=== PATIENT | female | born 1985 | race Caucasian/White ===

== ENCOUNTER 2017-02-26 05:40 | Inpatient (IN) | payer OTHER ==
[2017-02-26] MEDS ORDERED: EPSOM SALT 454 GM TP PRN (06:25)
[2017-02-26] MEDS ORDERED: OLIVE OIL 118 ML BTL MISC PRN (06:25)
[2017-02-26] MEDS ORDERED: TERBUTALINE SULFATE 1 MG/ML VIAL IV PRN (06:25)
[2017-02-26] MEDS ORDERED: OXYTOCIN 20 UNIT in LR 1,000 ML IV PRN (06:25)
[2017-02-26 06:59] LABS: % IMMATURE GRANULYOCYTES 0.3 % (0.0-1.1); ABSOLUTE IMMATURE GRANULOCYTES 0.03 10^3/uL (0.00-0.10); ADD DIFF? NO; ADD MORPH? NO; ADD SCAN? NO; ATYPICAL LYMPHOCYTE FLAG 0 (0-99); FRAGMENT RBC FLAG 0 (0-99); HEMATOCRIT 32.9 % (38.0-47.0); LEFT SHIFT FLG 0 (0-99); LIPEMIA HEMOLYSIS FLAG 80 (0-99); MEAN CELL HEMOGLOBIN 26.1 pg (27.9-34.1); MEAN CELL HEMOGLOBIN CONCENTR. 33.4 g/dL (32.4-36.7); MEAN PLATELET VOLUME 9.8 fL (8.7-11.7); PLATELET CLUMPS FLAG 10 (0-99); PLATELET COUNT 280 10^3/uL (150-400); RED BLOOD CELL COUNT 4.22 10^6/uL (4.18-5.33); RED CELL DISTRIBUTION WIDTH 13.3 % (11.5-15.2)
[2017-02-26] MEDS ORDERED: MISOPROSTOL 200 MCG TAB ONE (08:22)
[2017-02-26] MEDS ORDERED: OLIVE OIL 118 ML BTL ONE (08:22)
[2017-02-26] MEDS ORDERED: LIDOCAINE 1% 300 MG/30 ML SDV ONE (08:22)
[2017-02-26] MEDS ORDERED: AMMONIA AROMATIC 1 EACH AMP IH ONE (08:22)
[2017-02-26] MEDS ORDERED: OXYTOCIN 10 UNIT/ML VIAL ONE ×2 (08:22→22:13)
--- NOTE | 2017-02-26 10:04 | OBPROG ---
Labor Progress Note Assessment/Plan: Assessment: [id number] with IUP@ 40-4 PROM @ 0330 early labor GBS negative Plan: expectant management reassess in 2 hrs/PRN cont IA 02/26/17 10:00 02/26/17 10:02 02/26/17 10:03 Subjective/Intrapartum Course: 02/26/17 10:01 Pt doing well, she reports having irregular contractions. She is breathing through them. Currently using hydrotherapy for pain relief. She denies any pain medications at this time. Mother and FOB are at BS and supportive. Objective: 02/26/17 06:40 Patient ABO/Rh O POSITIVE 02/26/17 06:40 - SVE Dilation (cm): 3 Effacement (%): 75 Station: -2 (exam not done at this time, /-2 from previous RN exam) Membranes: SROM Amniotic Fluid Color: Clear - Contraction Pattern Assessment Current Contraction Pattern: Irregular (palpate moderate) - Physical Exam General Appearance: WD/WN, alert, no apparent distress Neck: supple Abdomen: non-tender, soft Skin: normal color, warm/dry Neuro/Psych: no motor/sensory deficits, alert, normal mood/affect, oriented x 3 Oxytocin Orders Assessment - Pre-Induction/Augmentation Assessment Gestational Age: 40 week(s) and 4 day(s) ICD10 Worksheet Patient Problems: Problems Problem Status Onset PROM (premature rupture of membranes) Acute - ICD10 Problem Qualifiers (1) PROM (premature rupture of membranes)
--- NOTE | 2017-02-26 13:25 | OBPROG ---
Labor Progress Note Assessment/Plan: Assessment:contractions q 2-3 cat 1 fhr pain fairly managed requesting epidural for pain relief forebag present exam 6/100/-1 hurting with the contractions Plan:epidural for pain relief expectant management 02/26/17 13:24 Subjective/Intrapartum Course: 02/26/17 10:01 Pt doing well, she reports having irregular contractions. She is breathing through them. Currently using hydrotherapy for pain relief. She denies any pain medications at this time. Mother and FOB are at BS and supportive. 02/26/17 13:21 coping fair. Requesting an epidural for pain relief Discussed r/b/a of epidural verbalized understanding Objective: 02/26/17 06:40 Patient ABO/Rh O POSITIVE 02/26/17 06:40 - SVE Dilation (cm): 6 Effacement (%): 100 Station: -1 Membranes: SROM Amniotic Fluid Color: Clear - Contraction Pattern Assessment Current Contraction Pattern: Irregular (palpate moderate) - FHR Assessment Kim FHR (bpm): 135 FHR Pattern Variability: Moderate FHR Category: 1 - Physical Exam General Appearance: WD/WN, alert, no apparent distress Respiratory: chest non-tender, lungs clear, normal breath sounds Cardiac/Chest: regular rate, rhythm Abdomen: normal bowel sounds Extremities: normal range of motion, Lakeisha's sign (negative bilaterally) DTR- Lower Extremities: Knee (R): 1+, Knee (L): 1+ (no clonus) Skin: normal color, warm/dry Neuro/Psych: no motor/sensory deficits, alert, normal mood/affect, oriented x 3 Oxytocin Orders Assessment - Pre-Induction/Augmentation Assessment Gestational Age: 40 week(s) and 4 day(s) ICD10 Worksheet Patient Problems: Problems Problem Status Onset PROM (premature rupture of membranes) Acute
[2017-02-26] MEDS: LR 1,000 ML IV PRN ×2 (13:29→14:45)
[2017-02-26] MEDS ORDERED: fentaNYL 2MCG/ML/BUP 0.1% RTU 100 ML BAG EP ONE (13:36)
[2017-02-26] MEDS ORDERED: BUPIVACAINE 0.25% 30 ML SDV ONE (13:37)
[2017-02-26] MEDS ORDERED: PHENYLEPHRINE HCL 100 MCG/ML SYR ONE (13:38)
[2017-02-26] MEDS ORDERED: fentaNYL 100 MCG/2 ML INJ ONE (13:39)
--- NOTE | 2017-02-26 13:54 | GHP ---
[f rep st] HISTORY AND PHYSICAL DATE OF ADMISSION: 02/26/2017 HISTORY OF PRESENT ILLNESS: The patient is a 3, A 2, living 0, 31-year- old with an EDC of 02/22/2017, which gives her a gestational age of 40 and 4/7 weeks who comes in with spontaneous rupture of membranes at 3:30 am on 2016. The patient states clear fluid, feeling positive movement, having regular contractions, positive bloody show. The patient has routinely been seen at [facility] since 07/23/2016 at 9 weeks and 4 days. PAST MEDICAL HISTORY: The patient has a history of migraines, history of asthma. PAST SURGICAL HISTORY: Benign FAMILY HISTORY: History of hypothyroidism and type 2 diabetes. PRESENT HISTORY: Severe nausea and vomiting early on in the . A complex chorionic hemorrhage that resolved. Rubella was low immune. GYNECOLOGICAL HISTORY: History of OCP use and an IUD. PREVIOUS HISTORY: January of 2016, 8 weeks SAB; 04/2016 a 5 week SAB. Menarche began at 13 years, 28 days, length of 5 days. LMP was certain at 05/25/2016. ROS x 8 benign PHYSICAL ASSESSMENT: Patient is awake, alert, oriented x3. LUNGS: Clear bilaterally. ABDOMEN: Bowel sounds are positive in all 4 quadrants. EXTREMITIES: DTRs are 1+ bilaterally with no clonus. LABS: The patient is O positive. Antibody negative. RPR is nonreactive. Rubella is low positive. Hepatitis is negative. HIV is negative. Trio screen was negative. TSH was 0.307. . Three hour GTT was within normal limits. The patient was dated with an early ultrasound at 8 weeks and the edc was changed to 02/22/2017. PLAN OF CARE: 1. GBS negative. 2. Epidural for pain relief. 3. Consult Dr. Ramirez for plan of care as needed. /[id number]/MODL MTDD
--- NOTE | 2017-02-26 14:31 | PREANESOB ---
Obstetric Pre-Anesthesia Info - General Info Proposed Procedure: Labor and delivery after SROM. : 3 Para: 0 TOMER: 02/22/17 Gestational Age: 40 week(s) and 4 day(s) - Info Status: Full Term Monitors: External FHR Baseline (bpm): 130 FHR Pattern: Reassuring - Labor Status Cervical Dilation per last OB SVE: 6 Station per last OB SVE: -1 Amniotic Fluid Color: Clear Indications for Labor Analgesia: Pain Control Labor Epidural: Proposed Anesthesia Allergies/Adverse Reactions: Allergy/AdvReac Type Severity Reaction Status Date / Time No Known Allergies Allergy Unverified 02/26/17 06:25 Home Medications: Medication Instructions Recorded Vit27&Calcium/Iron/FA 1 each PO DAILY 02/26/17 [ Rx 1 Tablet (RX)] Visit Medications: Generic Name Dose Route Start Last Admin Trade Name Freq PRN Reason Stop Dose Admin Lactated Ringer's 1,000 mls @ 0 mls/hr 02/26/17 06:25 Lr IV 02/27/17 06:24 PRN PRN SEE PROTOCOL CONDITIONS Protocol Per Protocol Oxytocin 20 unit/ Lactated 1,002 mls @ 150 mls/hr 02/26/17 06:25 Ringer's IV PRN PRN Post- bleeding Ibuprofen 600 mg 02/26/17 06:25 Motrin PO 08/25/17 06:24 Q6HRS PRN post , inflammation Magnesium Sulfate 454 gm 02/26/17 06:25 Epsom Salt TP 08/25/17 06:24 Q1H PRN perineal discomfort Crandall Oil 118 ml 02/26/17 06:25 Sweet Oil MISC 08/25/17 06:24 ONCE PRN perineal massage Terbutaline Sulfate 0.25 mg 02/26/17 06:25 Brethine IV 08/25/17 06:24 ONCE PRN Tachysystole Discontinued Medications Generic Name Dose Route Start Last Admin Trade Name Freq PRN Reason Stop Dose Admin Ammonia (Aromatic Spirit) Confirm 02/26/17 08:22 Ammonia Aromatic Administered 02/26/17 08:23 Dose 1 each IH .STK-MED ONE Bupivacaine HCl Confirm 02/26/17 13:37 Sensorcaine 0.25% Sdv Administered 02/26/17 13:38 Dose 30 ml .ROUTE .STK-MED ONE Fentanyl Confirm 02/26/17 13:39 Sublimaze Administered 02/26/17 13:40 Dose 100 mcg .ROUTE .STK-MED ONE Fentanyl/Bupivacaine HCl Confirm 02/26/17 13:36 Fentanyl/Bupivacaine/Ns 2 Mcg/Ml 0.1% (Premix Administered 02/26/17 13:37 Dose 100 ml EP .STK-MED ONE Lidocaine HCl Confirm 02/26/17 08:22 Lidocaine Hcl 1% Administered 02/26/17 08:23 Dose 300 mg .ROUTE .STK-MED ONE Misoprostol Confirm 02/26/17 08:22 Cytotec Administered 02/26/17 08:23 Dose 1,000 mcg .ROUTE .STK-MED ONE Crandall Oil Confirm 02/26/17 08:22 Sweet Oil Administered 02/26/17 08:23 Dose 118 ml .ROUTE .STK-MED ONE Oxytocin Confirm 02/26/17 08:22 Pitocin Administered 02/26/17 08:23 Dose 30 unit .ROUTE .STK-MED ONE Phenylephrine HCl Confirm 02/26/17 13:38 Neosynephrine Administered 02/26/17 13:39 Dose 1,000 mcg .ROUTE .STK-MED ONE - Anesthesia History Response to Local Anesthetics: Normal Anesthesia & Operative History: No Prior Problems - Social History Substance Use/Abuse: Denies - Vital Signs Blood Pressure: 122/70 Heart Rate: 115 Height/Weight (Nursing): Height 165.1 cm Weight 78.471 kg - Focused Exam Neck exam: FROM Mallampati Score: Class 2 Mouth exam: normal dental/mouth exam Pulmonary: no respiratory distress Cardiovascular: regular rate and rhythym Labs: 02/26/17 06:40 Patient ABO/Rh O POSITIVE 02/26/17 06:40 - Plan Anesthetic Plan: TWILA Consent Signed and on Chart: Yes Patient/Guardian Understands and Agrees to Plan: Yes Urgent/Emergent Case: Veronika goodson completed preop but documented later for safe timely pt care
--- NOTE | 2017-02-26 14:35 | POSTANESTH ---
Post Anesthetic Evaluation Cardiovascular Status: Normal, Stable, Similar to Pre-Op Cond Respiratory Status: Normal, Stable, Similar to Pre-op Cond. Level of Consciousness/Mental Status: Can Participate in Eval, Alert and Oriented Pain Control: Adequate, Prn Tx Ordered Nausea/Vomiting Control: Adequate, Prn Tx Ordered Complications Possibly Related to Anesthesia: None Noted
[2017-02-26] MEDS ORDERED: PHENYLEPHRINE HCL 100 MCG/ML SYR IVP PRN (14:37)
[2017-02-26] MEDS ORDERED: ONDANSETRON 4 MG/2 ML VIAL IVP PRN (14:37)
[2017-02-26] MEDS ORDERED: LR 500 ML IV SCH (15:00)
--- NOTE | 2017-02-26 15:00 | OBPROG ---
Labor Progress Note Assessment/Plan: Assessment: IUP at 40+ wks SROM, SOOC recent TWILA and comfortable GBS- Plan: Forbag - just AROM'd, still clear fluid 02/26/17 14:57 Subjective/Intrapartum Course: 02/26/17 10:01 Pt doing well, she reports having irregular contractions. She is breathing through them. Currently using hydrotherapy for pain relief. She denies any pain medications at this time. Mother and FOB are at BS and supportive. 02/26/17 13:21 coping fair. Requesting an epidural for pain relief Discussed r/b/a of epidural verbalized understanding 02/26/17 14:58 Pt very happy with TWILA, No pain now. Wants forebag ruptured Objective: 02/26/17 06:40 Patient ABO/Rh O POSITIVE 02/26/17 06:40 Temp Pulse Resp BP Pulse Ox 115 H 122/70 H 02/26/17 14:33 02/26/17 14:33 - SVE Dilation (cm): 8 Effacement (%): 100 Station: -1 Membranes: SROM Amniotic Fluid Color: Clear - Contraction Pattern Assessment Current Contraction Pattern: Regular (q 3 min after AROM of forebag), Irregular (palpate moderate) - FHR Assessment Kim FHR (bpm): 130 FHR Pattern Variability: Moderate FHR Category: 1 - Procedures Non-surgical Procedures: Amniotomy Oxytocin Orders Assessment - Pre-Induction/Augmentation Assessment Gestational Age: 40 week(s) and 4 day(s) ICD10 Worksheet Patient Problems: Problems Problem Status Onset PROM (premature rupture of membranes) Acute
--- NOTE | 2017-02-26 15:49 | GHP ---
[f rep st] PREOP HISTORY AND PHYSICAL DATE OF ADMISSION: 02/26/2017 HISTORY: Upon admission the patient is a 31-year-old, G3, A2 with an estimated due date of 02/22, wh o presents at 40 weeks and 4 days with spontaneous rupture of membranes approximately 3:30 this morni ng with clear fluid. She reports spontaneous onset of contractions approximately 4:30 this morning, but still with relatively low intensity upon admission. Throughout the time on Labor and Delivery the contractions have gradually built up with intensity. T he patient's GBS culture is negative and the patient is admitted for labor. The patient has reported good movement with only pink-tinge of the fluid. CARE: The patient has been with [facility] [place] since 9 weeks' gestation. The kieran martines had a subchorionic hemorrhage in the 1st trimester with spotting. The patient had had 2 prior SABs so obviously had increased anxiety in the 1st trimester. She was on Prometrium for support. She wa s bothered by significant nausea and vomiting in the 1st trimester. She used Unisom and B6. The yoni barakat was taking baby aspirin due to the prior losses since the beginning of the . The araceli martinez's initial viability ultrasound was normal at 9 weeks. She does have a small fibroid approximately 2.5 cm. The patient's nausea improved after the 1st trimester. Anatomy ultrasound at 19-1/2 weeks was normal . Thyroid function testing was normal. Initially checked on first trimester, the TSH was slightly l ow at 0.3, but it was rechecked in midpregnancy and it was 0.7. The patient had an elevated 1-hour G lucola and the 3-hour GTT was normal. The patient had leakage of fluid at 35 weeks, but was evaluate d and did not have any signs of infection. LABORATORY: Includes maternal blood type O positive with negative antibody screen. RPR non reactive. Rubella low positive. Hepatitis B surface antigen negative. HIV negative. Cystic fibros is and SMA negative. Initial hematocrit 38%. Verify testing was negative. Initial urinalysis showe d ketones, but negative culture. Pap smear, gonorrhea and chlamydia were deferred at the beginning o f . GBS culture was negative. PAST MEDICAL HISTORY: The patient has history of mild exercise-induced asthma. Occasional migraines . PAST SURGICAL HISTORY: Negative. PAST OBSTETRIC HISTORY: A SAB at 8 weeks in January 2016 and another SAB at 5 weeks in April. ALLERGIES: No known drug allergies. MEDICATIONS: Only vitamins, aspirin and other vitamin supplements. SOCIAL HISTORY: The patient is . Lives with her , Pardeep. The patient is a nonsmoker . No alcohol or drug use. PHYSICAL EXAMINATION: GENERAL: Upon admission, the patient is a well-developed, well-nourished, whi te female, in only mild discomfort upon admission, but contractions did intensify throughout the morn ing. VITAL SIGNS: The patient was afebrile with normal vital signs upon admission. See nursing doc umentation for full details. heart tones have shown a category 1 tracing in the 130s with good variability and accelerations. INITIAL CERVICAL EXAM: Upon admission was 3 cm dilation, 70% efface d, at -2 station. There was clear fluid noted on exam. EXTREMITIES: Nontender with no edema. ASSESSMENT: Intrauterine at 40 weeks and 4 days on admission. The patient had spontaneous rupture of membranes and spontaneous onset of contractions in early labor. GBS culture negative wit h clear fluid. PLAN: The patient desires a natural approach and wants to let the contractions continue to build. T he patient has plans for using the tub for labor comfort. /[id number]/MODL
--- NOTE | 2017-02-26 17:34 | OBPROG ---
Labor Progress Note Assessment/Plan: Assessment:contractions q 4-5 cat 1 epidural working well for pain relief cephalic exam /-1 minimal change in cervix iupc placed contractions not adequate Plan:r/b/a/ of pitocin discussed with patient and family ok to begin pitocin per protocol discussed patient with dr. degroot will take over care 02/26/17 13:24 02/26/17 17:30 Subjective/Intrapartum Course: 02/26/17 10:01 Pt doing well, she reports having irregular contractions. She is breathing through them. Currently using hydrotherapy for pain relief. She denies any pain medications at this time. Mother and FOB are at BS and supportive. 02/26/17 13:21 coping fair. Requesting an epidural for pain relief Discussed r/b/a of epidural verbalized understanding 02/26/17 14:58 Pt very happy with TWILA, No pain now. Wants forebag ruptured 02/26/17 17:32 comfortable with epidural denies pain feeling small amount of pressure Objective: 02/26/17 06:40 Patient ABO/Rh O POSITIVE 02/26/17 06:40 Temp Pulse Resp BP Pulse Ox 115 H 122/70 H 02/26/17 14:33 02/26/17 14:33 - SVE Dilation (cm): 8 Effacement (%): 100 Station: -1 Membranes: SROM Amniotic Fluid Color: Clear - Contraction Pattern Assessment Current Contraction Pattern: Regular (q 3 min after AROM of forebag), Irregular (palpate moderate) - Procedures Non-surgical Procedures: Amniotomy Oxytocin Orders Assessment - Pre-Induction/Augmentation Assessment Gestational Age: 40 week(s) and 4 day(s) ICD10 Worksheet Patient Problems: Problems Problem Status Onset PROM (premature rupture of membranes) Acute
[2017-02-26] MEDS: OXYTOCIN 30 UNIT in NS 500 ML IV SCH ×2 (18:08)
[2017-02-26] MEDS: fentaNYL 2MCG/ML/BUP 0.1% RTU 100 ML EP SCH (20:12)
[2017-02-26] MEDS ORDERED: ACETAMINOPHEN 500 MG TAB PO ONE (23:45)
[2017-02-26] MEDS ORDERED: GENTAMICIN 100 MG/NACL 100 ML IV ONE (23:45)
[2017-02-26] MEDS: CALCIUM CARBONATE 500 MG CHEWABLE TAB PO PRN (23:53)
[2017-02-27] MEDS: AMPICILLIN SODIUM 1 GM in NS 50 ML IV SCH ×2 (01:05→01:38)
[2017-02-27] MEDS: fentaNYL 2MCG/ML/BUP 0.1% RTU 100 ML EP SCH (01:38)
--- NOTE | 2017-02-27 02:33 | OBDEL ---
Info Type: Vaginal Presentation at Delivery: Vertex L&D Analgesia/Anesthesia Type: Epidural GBS+: No Intrapartum Medications: Generic Name Dose Route Start Last Admin Trade Name Freq PRN Reason Stop Dose Admin Calcium Carbonate 500 mg 02/26/17 23:30 02/26/17 23:53 Tums PO 08/25/17 23:29 500 mg Q4 PRN Administration HEARTBURN Lactated Ringer's 1,000 mls @ 0 mls/hr 02/26/17 06:25 02/26/17 14:45 Lr IV 02/27/17 06:24 1,000 mls PRN PRN Administration SEE PROTOCOL CONDITIONS Protocol Per Protocol Fentanyl/Bupivacaine HCl 100 mls @ 0 mls/hr 02/26/17 15:00 02/27/17 01:38 Fentanyl/Bupivacaine/Ns 2 Mcg/Ml 0.1% (Premix EP 03/08/17 14:59 100 mls CONT REKHA Administration Protocol As Directed Oxytocin 30 unit/ Sodium 503 mls @ 0 mls/hr 02/26/17 17:45 02/26/17 18:08 Chloride IV 08/25/17 17:44 503 mls CONT REKHA Administration Per Protocol Discontinued Medications Generic Name Dose Route Start Last Admin Trade Name Moises PRN Reason Stop Dose Admin Acetaminophen 1,000 mg 02/26/17 23:45 02/26/17 23:51 Tylenol PO 02/26/17 23:46 1,000 mg ONCE ONE Administration Oxytocin 20 unit/ Lactated 1,002 mls @ 150 mls/hr 02/26/17 06:25 02/27/17 02: 14 Ringer's IV 1,002 mls PRN PRN Administration Post- bleeding Ampicillin Sodium 1 gm/ Sodium 50 mls @ 100 mls/hr 02/26/17 23:30 02/27/17 01 :38 Chloride IV 02/27/17 00:29 50 mls Q30M REKHA Administration Gentamicin Sulfate/Sodium Chloride 100 mls @ 100 mls/hr 02/26/17 23:45 23:59 Gentamicin 100 Mg (Premix) IV 02/27/17 00:44 100 mls ONCE ONE Administration - Care Provider Utility Clerk/WIND [employer]URB[employer] MECHANICAL ENGINEER: Tiago Rangel - Hospital Course Intrapartum: 02/26/17 10:01 Pt doing well, she reports having irregular contractions. She is breathing through them. Currently using hydrotherapy for pain relief. She denies any pain medications at this time. Mother and FOB are at BS and supportive. 02/26/17 13:21 coping fair. Requesting an epidural for pain relief Discussed r/b/a of epidural verbalized understanding 02/26/17 14:58 Pt very happy with TWILA, No pain now. Wants forebag ruptured 02/26/17 17:32 comfortable with epidural denies pain feeling small amount of pressure Indications for Delivery: Spontaneous Labor, SROM Vaginal Delivery - Delivery Provider Delivery Physician/CNM: Laura Ramirez - Labor and Delivery Onset of Contractions Date: 02/26/17 Onset of Contractions Time: 04:15 Onset of Contractions Type: Augmented (with Pitocin after TWILA) Rupture of Membranes Date: 02/26/17 Rupture of Membranes Time: 03:30 (AROM of forebag at 14:44) Rupture of Membranes Type: Spontaneous Amniotic Fluid Color: Clear, Meconium Stained (at del, light) Dilation Complete Date: 02/26/17 Dilation Complete Time: 22:06 Placenta Delivery Date: 02/27/17 Placenta Delivery Time: 02:10 Total Hours of Labor: 21 Non-surgical Procedures: Amniotomy, IUPC Vaginal Sponge Count Correct: Yes Vaginal Needle Count Correct: Yes Vaginal Sweep Performed: Yes EBL: 400 Delivery Events: None - Medications Labor Augmentation/Induction Methods Used: Pitocin Labor Augmentation/Induction Indication: Contraction Strength Inadequate (after TWILA) [place] Data TOMER: 02/22/17 Gestational Age: 40 week(s) and 5 day(s) Kim Delivery Date: 02/27/17 Delivery Time: 01:58 Sex of : Male (Pancho Fall) Score (1 Min): 8 Score (5 Min): 9 ICD10 Worksheet Patient Problems: Problems Problem Status Onset Chorioamnionitis Acute PROM (premature rupture of membranes) Acute (spontaneous vaginal delivery) Acute - ICD10 Problem Qualifiers (1) (spontaneous vaginal delivery) (2) Chorioamnionitis Qualifiers: Fetus number: single or unspecified fetus Trimester: third trimester Qualified Code(s): O41.1230 - Chorioamnionitis, third trimester, not applicable or unspecified
[2017-02-27] MEDS: IBUPROFEN 600 MG TAB PO PRN ×4 (03:14→22:00)
[2017-02-27] MEDS: CALCIUM CARBONATE 500 MG CHEWABLE TAB PO PRN (03:14)
[2017-02-27] MEDS ORDERED: MEASLES,MUMPS&RUBELLA VACC/PF 0.5 ML VIAL SC ONE (09:00)
[2017-02-27] MEDS: DOCUSATE SODIUM 100 MG CAP PO PRN ×2 (09:36→22:00)
[2017-02-27] MEDS: ACETAMINOPHEN 325 MG TAB PO PRN ×2 (12:52→19:50)
--- NOTE | 2017-02-27 17:54 | OBPP ---
Progress Note Assessment/Plan: Assessment: [id number] s/p PPD#0 Plan: routine PP care ambulate adequate PO hydration plan d/c home in 24-48hours 02/26/17 10:00 02/26/17 10:02 02/26/17 10:03 02/27/17 17:52 Subjective/ Course: 02/27/17 17:53 Patient is doing well. States she is very happy with her . She denies any heavy bleeding or pain. She is well. She is ambulating and voiding without difficulty. She denies any depression. FOB at bedside and supportive. Objective: 02/26/17 06:40 Patient ABO/Rh O POSITIVE 02/26/17 06:40 Temp Pulse Resp BP Pulse Ox 36.3 C 83 16 99/60 L 02/27/17 08:23 02/27/17 08:23 02/27/17 08:23 02/27/17 08:23 Uterine Position/Fundal Height: Umbilicus -1, Midline Uterine Tone: Firm Physical Exam - Physical Exam EENT: PERRL/EOMI Neck: supple Respiratory: lungs clear, normal breath sounds Cardiac/Chest: regular rate, rhythm Abdomen: non-tender, soft Extremities: non-tender Skin: normal color, warm/dry Neuro/Psych: alert, normal mood/affect, oriented x 3
[2017-02-28] MEDS: IBUPROFEN 600 MG TAB PO PRN ×4 (06:20→23:55)
[2017-02-28] MEDS: ACETAMINOPHEN 325 MG TAB PO PRN (08:58)
[2017-02-28] MEDS: DOCUSATE SODIUM 100 MG CAP PO PRN ×2 (11:45→23:55)
--- NOTE | 2017-02-28 14:10 | OBPP ---
Progress Note Assessment/Plan: Assessment: 31 y/o PPD #1 s/p doing well. Plan: support and routine PPC. D/c home tomorrow. 02/28/17 14:10 Subjective/ Course: 02/27/17 17:53 Patient is doing well. States she is very happy with her . She denies any heavy bleeding or pain. She is well. She is ambulating and voiding without difficulty. She denies any depression. FOB at bedside and supportive. 02/28/17 14:08 Pt is doing well today. She has min cramping and perineal pain controlled by Ibuprofen and Tylenol. Baby is doing well, nursing well. They wish to d.c home tomorrow. Objective: 02/26/17 06:40 Patient ABO/Rh O POSITIVE 02/26/17 06:40 Temp Pulse Resp BP Pulse Ox 36.2 C 92 18 101/69 95 02/27/17 20:38 02/27/17 20:38 02/27/17 20:38 02/27/17 20:38 02/27/17 20:38 Uterine Position/Fundal Height: Umbilicus -2 Uterine Tone: Firm Physical Exam - Physical Exam Neck: non-tender, full range of motion, supple Respiratory: chest non-tender, lungs clear, normal breath sounds Cardiac/Chest: regular rate, rhythm Abdomen: normal bowel sounds Extremities: swelling (no), Lakeisha's sign (neg)
[2017-02-28 20:20] VITALS: BP 116/73; PULSE 94; RESP 16; TEMP 97.5; O2SAT 94
[2017-03-01] MEDS: DOCUSATE SODIUM 100 MG CAP PO PRN (08:35)
[2017-03-01] MEDS: IBUPROFEN 600 MG TAB PO PRN (08:35)
[2017-03-01] MEDS ORDERED: IRON POLYSAC/IRON HEME 28 MG TAB PO SCH (09:00)
--- NOTE | 2017-03-01 09:53 | OBPP ---
Progress Note Assessment/Plan: Assessment:nipples red and tender pain well managed vs wnl ff@u scant rubra lochia perineum approximated voiding without difficulty Plan:Discharge to home with instructions fu 4 weeks and 6 weeks, depression, pericare, pelvic rest, rest, pain management, pnv, contraception discussed 02/26/17 13:24 02/26/17 17:30 03/01/17 09:51 Subjective/ Course: 02/27/17 17:53 Patient is doing well. States she is very happy with her . She denies any heavy bleeding or pain. She is well. She is ambulating and voiding without difficulty. She denies any depression. FOB at bedside and supportive. 02/28/17 14:08 Pt is doing well today. She has min cramping and perineal pain controlled by Ibuprofen and Tylenol. Baby is doing well, nursing well. They wish to d.c home tomorrow. 03/01/17 09:49 PT is doing well today. Struggling some with . Discussed ways to asist with supply and . Different positions discussed. Pain well managed Some redness to the nipples. voiding without difficulty. Pericare with each void Objective: 02/26/17 06:40 Patient ABO/Rh O POSITIVE 02/26/17 06:40 Temp Pulse Resp BP Pulse Ox 36.4 C 94 16 116/73 94 02/28/17 20:19 02/28/17 20:19 02/28/17 20:19 02/28/17 20:19 02/28/17 20:19 Uterine Position/Fundal Height: At Umbilicus Uterine Tone: Firm Physical Exam - Physical Exam General Appearance: WD/WN, alert, no apparent distress Abdomen: other (ff@u/ scant rubra lochia) Extremities: normal range of motion, Lakeisha's sign (negative bilaterally) DTR- Lower Extremities: Knee (R): 1+, Knee (L): 1+ (no clonus) Skin: normal color, warm/dry Neuro/Psych: no motor/sensory deficits, alert, normal mood/affect, oriented x 3
== END 2017-03-01 11:35 | disposition home or self-care (01) | DRG 774 ==
LOC: FLD 05:40 → OBSVTOIN 06:25 → FOB 02-27 04:45
PROVIDERS: ADMIT Obstetrics & Gynecology; ATTEND Obstetrics & Gynecology
DX: O48.0 Post-term pregnancy (principal); O24.12 Pre-existing type 2 diabetes mellitus, in childbirth; E11.9 Type 2 diabetes mellitus without complications; O99.284 Endocrine, nutritional and metabolic diseases complicating childbirth; E03.9 Hypothyroidism, unspecified; O77.0 Labor and delivery complicated by meconium in amniotic fluid; O90.81 Anemia of the puerperium; Z3A.40 40 weeks gestation of pregnancy; Z37.0 Single live birth
CPT/HCPCS: J0290; J2370; J3010